=== PATIENT | female | born 1985 | race Two or more races ===

== ENCOUNTER 2025-03-24 08:00 | Day surgery (SDC) | payer OTHER ==
[2025-03-19 08:20] LABS: BASO % 0.4 % (0.1-1.2); EOS # 0.18 (0.04-0.54); EOS % 1.7 % (0.7-7.0); LYMPH # 2.38 (1.18-3.74); LYMPH % 23.0 % (19.3-53.1); MEAN PLATELET VOLUME 9.40 fl (9.4-12.4); MONO # 0.90 (0.24-0.82); MONO % 8.7 % (4.7-12.5); NEUT # 6.81 (1.56-6.13); NEUT % 65.8 % (34.0-71.1); RED CELL DISTRIBUTION WIDTH 16.9 % (11.6-14.4)
[2025-03-19 08:34] LABS: URINE BACTERIA 639.4 uL (0.0-1933); URINE EPITHELIAL CELLS 5.0 uL (0.0-38.8); URINE RBC 46.1 uL (0.0-20.8); URINE WBC 7.9 uL (0.0-23.2)
[2025-03-19 08:51] LABS: INR 1.05
[2025-03-19 08:56] LABS: ALT/SGPT 56.0 U/L (12-78); AST/SGOT 44.0 U/L (15-37); BILIRUBIN TOTAL 0.39 mg/dL (0.3-1.2); BUN CREA RATIO 10.0 (7.0-25.0); CREATININE SERUM 0.73 mg/dL (0.55-1.02); GFR 87.85; GLOBULINA 3.6 G/DL (2.4-3.5); GLUCOSE FASTING 81.0 mg/dL (65-100); OSMOLALITY SERUM 282.0 MOSM/KG (275-295)
[2025-03-19 09:12] LABS: URINE APPEARANCE Clear; URINE BILIRRUBIN Negative (NEGATIVE); URINE BLOOD Negative; URINE COLOR Yellow; URINE GLUCOSE Negative (NEGATIVE); URINE KETONE 15 (NEGATIVE); URINE LEUKOCYTE Negative; URINE NITRATE Negative; URINE PROTEIN Negative (NEGATIVE); URINE UROBILINOGEN 1.0 E.U./dl
[2025-03-19 09:39] LABS: URINE CAST 0.43 uL (0.0-1.40)
[2025-03-19 11:12] VITALS: BP 102/71
[~2025-03-24] VITALS: Ht 152.4 cm; Wt 124.3 kg
[~2025-03-24 08:00] MED LIST: INTEGRA PLUS C1 EACH PO; LEVSIN/SL0.125 MG PO; PREVACID PO
[2025-03-24] MEDS ORDERED: POVIDONE-IODINE 118 ML BOTT TOP ONE ×2 (12:15→13:15)
[2025-03-24] MEDS ORDERED: PROMETHAZINE HCL 50 MG/ML AMPUL IM ONE (13:00)
[2025-03-24] MEDS ORDERED: MORPHINE SULFATE 4 MG/ML VIAL IV PRN (13:00)
== END 2025-03-24 17:40 | disposition home or self-care (01) ==
LOC: CIR.AMB 08:00
PROVIDERS: ATTEND Obstetrics & Gynecology
DX: N84.0 Polyp of corpus uteri (principal); N93.8 Other specified abnormal uterine and vaginal bleeding